=== PATIENT | female | born 1985 | race Hispanic/Latino ===

== ENCOUNTER 2017-07-18 06:19 | Inpatient (IN) | payer BC, MEDICAID ==
[~2017-07-18] VITALS: Ht 167.6 cm; Wt 80.7 kg
[2017-07-18] MEDS ORDERED: LACTATED RINGERS 1000ML 1,000 ML IV PRN (06:46)
[2017-07-18] MEDS ORDERED: OXYTOCIN 10 USP UNITS/ML 20 UNIT in LACTATED RINGERS 1000ML 1,000 ML IV SCH (07:00)
[2017-07-18 07:13] LABS: APPEARANCE,URINE Clear (CLEAR); BILIRUBIN,URINE Negative (NEGATIVE); COLOR,URINE Yellow (YELLOW); GLUCOSE, URINE (UA) Negative (NEGATIVE); KETONES,URINE Negative (NEGATIVE); LEUKOCYTE ESTERASE ,URINE Trace (NEGATIVE); NITRATE,URINE Negative (NEGATIVE); OCCULT BLOOD,URINE Negative (NEGATIVE); PROTEIN,URINE Negative (NEGATIVE); UROBILINOGEN,URINE 0.2 mg/dL (0.2-1.0)
[2017-07-18] MEDS ORDERED: OXYTOCIN 10 USP UNITS/ML ONE ×2 (07:39→18:05)
[2017-07-18] MEDS ORDERED: LACTATED RINGERS 1000ML 1,000 ML IV ONE (07:39)
[2017-07-18 07:43] LABS: HEMATOCRIT 31.7 % (36-48); MEAN CORPUSCULAR HEMOGLOBIN 28.4 pg (27.0-33.0); MEAN CORPUSCULAR VOLUME 83.5 fL (79-99); NUCLEATED RED BLOOD CELLS 0.1 % (0.0-0.19); PLATELET COUNT (AUTO) 188 K/uL (130-400); RED BLOOD CELL COUNT(AUTO) 3.79 MIL/uL (4.00-5.50); RED CELL DISTRIBUTION WIDTH 14.5 % (11.0-15.5); WHITE BLOOD COUNT (AUTO) 8.5 K/uL (4.8-10.8)
[2017-07-18 07:44] LABS: BACTERIA,URINE Rare /HPF (None Seen); RBC,URINE 0-1 /HPF (0-1); WBC,URINE 0-1 /HPF (0-1)
[2017-07-18 07:45] LABS: SQUAMOUS EPITHELIAL CELL,UR Rare /LPF (0-2)
[2017-07-18] MEDS ORDERED: NALOXONE HCL 0.4 MG/1 ML ML IV PRN (10:45)
[2017-07-18] MEDS ORDERED: LACTATED RINGERS 500 ML 500 ML IV PRN (10:45)
[2017-07-18] MEDS ORDERED: EPHEDRINE SULFATE 50 MG/ML AMPULE IVP PRN (10:45)
[2017-07-18] MEDS ORDERED: OXYTOCIN-LR 20 UNITS/1000 ML 1,000 ML IV SCH (17:30)
[2017-07-18] MEDS ORDERED: WITCH HAZEL 1 PAD TP PRN (17:30)
[2017-07-18] MEDS ORDERED: HYDROCORTISONE 0.5% 30 GM OINT TP PRN (17:30)
[2017-07-18] MEDS ORDERED: ACETAMINOPHEN-CODEINE 300/30MG TAB PO PRN (17:30)
[2017-07-18] MEDS ORDERED: LANOLIN 30GM OINTMENT TP PRN (17:30)
[2017-07-18] MEDS ORDERED: LIDOCAINE HCL 5% OINT 36GM TUBE TP PRN (17:30)
[2017-07-18] MEDS ORDERED: DIPH,PERTUSS(ACELL),TET VAC/PF 0.5 ML VIAL IM PRN (17:30)
[2017-07-18] MEDS ORDERED: HYDROCORTISONE/PRAMOXINE 10 GM FOAM RC PRN (18:00)
[2017-07-18] MEDS ORDERED: PHARMACY COMMUNICATION MISC SCH (18:00)
[2017-07-18 18:53] VITALS: BP 97/64
[2017-07-18] MEDS: IBUPROFEN 800 MG TAB PO PRN (21:58)
[2017-07-18] MEDS: DOCUSATE SODIUM 100 MG CAP PO SCH (21:58)
[2017-07-18 23:42] VITALS: BP 99/62
[2017-07-19 03:41] VITALS: BP 99/70
[2017-07-19 07:26] VITALS: BP 105/73
[2017-07-19 08:20] LABS: HEPATITIS Bs ANTIGEN SCREEN P Negative (Negative)
[2017-07-19] MEDS: DOCUSATE SODIUM 100 MG CAP PO SCH (09:28)
[2017-07-19] MEDS: IBUPROFEN 800 MG TAB PO PRN (09:30)
[2017-07-19 12:11] VITALS: BP 96/54
[2017-07-19 15:37] VITALS: BP 90/50
== END 2017-07-19 18:40 | disposition home or self-care (01) | DRG 775 ==
LOC: LDH 06:19 → WSH 18:52 → EDSTATUS 07-24 06:18
PROC: 0KQM0ZZ Repair Perineum Muscle, Open Approach (ICD-10-PCS; principal; 2017-07-18)
PROC: 10E0XZZ Delivery of Products of Conception, External Approach (ICD-10-PCS; 2017-07-18)
PROC: 10907ZC Drainage of Amniotic Fluid, Therapeutic from Products of Conception, Via Natural or Artificial Opening (ICD-10-PCS; 2017-07-18)
PROC: 3E033VJ Introduction of Other Hormone into Peripheral Vein, Percutaneous Approach (ICD-10-PCS; 2017-07-18)
DX: O36.60X0 Maternal care for excessive fetal growth, unspecified trimester, not applicable or unspecified (principal); D50.9 Iron deficiency anemia, unspecified; O70.1 Second degree perineal laceration during delivery; Z37.0 Single live birth; Z3A.39 39 weeks gestation of pregnancy; O99.03 Anemia complicating the puerperium
CPT/HCPCS: 36415; 81001; 85027; 86592; 86850; 86900; 86901; 87340; A4314; J2590; J7120